=== PATIENT | male | born 1980 | race Caucasian/White ===

== ENCOUNTER 2018-01-04 11:22 | Emergency (ER) | payer OTHER ==
[~2018-01-04] VITALS: Ht 180.3 cm; Wt 72.6 kg
[~2018-01-04 11:22] MED LIST: IBUP600 PO; Percocet 5-3251 EACH PO; Prednisone20 MG PO
== END 2018-01-04 12:41 | disposition home or self-care (01) ==
LOC: ER 11:22
DX: S01.21XA Laceration without foreign body of nose, initial encounter (principal); V47.5XXA Car driver injured in collision with fixed or stationary object in traffic accident, initial encounter
CPT/HCPCS: 12011; 99283

== ENCOUNTER 2022-02-06 19:51 | Emergency (ER) | payer OTHER ==
[~2022-02-06] VITALS: Ht 177.8 cm; Wt 70.3 kg
[2022-02-06] MEDS ORDERED: SULTRISS PO (20:48)
[2022-02-06] MEDS ORDERED: CEPH500 PO (20:48)
== END 2022-02-06 21:04 | disposition home or self-care (01) ==
LOC: ER 19:51
DX: L03.116 Cellulitis of left lower limb (principal); L03.115 Cellulitis of right lower limb
CPT/HCPCS: 99283; A9270

== ENCOUNTER 2022-04-11 11:15 | Emergency (ER) | payer SELFPAY ==
[~2022-04-11] VITALS: Ht 180.3 cm; Wt 72.6 kg
[~2022-04-11 11:15] MED LIST changes: +CEPH500 PO; +SULTRISS PO
== END 2022-04-11 14:16 | disposition home or self-care (01) ==
LOC: ER 11:15
DX: S62.001A Unspecified fracture of navicular [scaphoid] bone of right wrist, initial encounter for closed fracture (principal); V86.56XA Driver of dirt bike or motor/cross bike injured in nontraffic accident, initial encounter
CPT/HCPCS: 73110; 73120

== ENCOUNTER 2023-10-13 03:32 | Emergency (ER) | payer OTHER ==
[~2023-10-13] VITALS: Ht 182.9 cm; Wt 65.8 kg
[2023-10-13 03:58] VITALS: BP 133/93
== END 2023-10-13 04:09 ==
LOC: ER 03:32
DX: Z02.89 Encounter for other administrative examinations (principal)
CPT/HCPCS: 51701; 99282-25